=== PATIENT | female | born 1995 | race Asian ===

== ENCOUNTER 2022-05-21 15:23 | Emergency (ER) | payer MEDICAID ==
[~2022-05-21] VITALS: Ht 160 cm; Wt 54.4 kg
[2022-05-21 15:59] VITALS: BP 122/80
--- NOTE | 2022-05-21 20:10 | NUR ---
PT BIBSELF FROM HOME C/O DIARRHEA WITH BLOOD STEAKS. PT A/OX4. TOLERATING R/A WELL WITH NO RESP DISTRESS. AMB WITH STEADY GAIT.
[2022-05-21] MEDS ORDERED: CIPR500T5 PO (20:14)
--- NOTE | 2022-05-21 20:28 | NUR ---
Patient discharged to home in stable condition. Written and verbal after care instructions given. Patient verbalizes understanding of instruction.
== END 2022-05-21 20:28 | disposition home or self-care (01) ==
LOC: ER 15:36
DX: R19.7 Diarrhea, unspecified (principal); K92.1 Melena